=== PATIENT | female | born 1990 | race Caucasian/White ===

== ENCOUNTER 2018-01-11 13:10 | Inpatient (IN) ==
[2018-01-11] MEDS ORDERED: Haloperidol Inj 5 MG/ML Ampul IM ONE ×2 (13:19→13:23)
[2018-01-11] MEDS ORDERED: Acetaminophen 325 MG Tablet PO ONE (15:17)
[2018-01-11 16:10] LABS: Amphetamine Screen,Urine Neg (Neg); Barbiturate Screen,Urine Neg (Neg); Cannabinoid Screen,Urine Pos (Neg); Cocaine Screen,Urine Neg (Neg); Opiate Screen,Urine Neg (Neg)
[2018-01-11 16:17] LABS: Baso % (Auto) 0.2 % (0.0-2.0); Eos % (Auto) 0.1 % (0.0-4.0); Hematocrit 40.9 % (35.0-46.0); Hemoglobin 14.1 gm/dL (11.6-15.3); Lymph # (Auto) 1.4 th/mm3 (1.0-4.8); Lymph % (Auto) 11.1 % (9.0-44.0); Mean Corpuscular HGB Conc 34.6 % (32.0-36.0); Mean Corpuscular Hemoglobin 31.3 pg (27.0-34.0); Mean Corpuscular Volume 90.6 fL (80.0-100.0); Mean Platelet Volume 9.4 fL (7.0-11.0); Mono # (Auto) 0.7 th/mm3 (0.0-0.9); Mono % (Auto) 5.5 % (0.0-8.0); Neut # (Auto) 10.7 th/mm3 (1.8-7.7); Neut % (Auto) 83.1 % (16.0-70.0); Platelet Count 215 th/mm3 (150-450); Red Blood Count 4.51 mil/mm3 (4.00-5.30); White Blood Count 12.8 th/mm3 (4.0-11.0)
[2018-01-11 16:50] LABS: Alanine Aminotransferase 31 U/L (10-53); Albumin 4.1 g/dL (3.4-5.0); Anion Gap 7 meq/L (5-15); Aspartate Aminotransferase 29 U/L (15-37); Blood Urea Nitrogen 14 mg/dL (7-18); Calcium 8.9 mg/dL (8.5-10.1); Carbon Dioxide 28.7 meq/L (21.0-32.0); Chloride 104 meq/L (98-107); Glomerular Filtration Rate 75 mL/min (>89); Glucose,Random 87 mg/dL (74-106); Potassium 4.2 meq/L (3.5-5.1); Sodium 140 meq/L (136-145)
--- NOTE | 2018-01-11 16:57 | ED ---
HPI General Chief Complaint: Psychiatric Symptoms Stated Complaint: Psych Eval/HHPD Time Seen by Provider: 01/11/18 14:40 Source: patient Mode of arrival: ambulatory Limitations: no limitations History of Present Illness HPI Narrative: 27-year-old female presents to the emergency department under Bartholomew act. According to the Bartholomew act report the patient had called her public welfare director and told her that she was going to cut her wrists over a criminal case she is involved in. The public welfare director called the police to report the incident and officers responded to the patient's place of residence and she was not there. There were many attempted phone calls with the patient continually hanging up on the officers. After an extensive ground and air search for the patient she was located. Once the patient was secured in the patrol vehicle she continues to bang her head into the patrol vehicle cage causing injury to her head. The patient does have a small laceration to her mid forehead. She is awake and alert and cooperative on exam. She was combative and agitated upon arrival earlier and was medicated with Haldol, Ativan, and Benadryl. On my examination the patient denies suicidal or homicidal ideations. Denies history of suicidal attempts. Denies plan of suicide. Denies auditory or visual hallucinations. Denies illicit drug use, alcohol use, tobacco use. Denies history of psychiatric illness. Has no emergent medical complaints. Reports having a headache. Aggravated by criminal case. No known relieving factors. Symptoms are moderate to severe in severity. No treatments tried. Onset unknown. Duration most likely acute. History of herniated disks, otherwise denies any significant past medical history. No allergies. No primary care provider. No psychiatrist. Has no other medical complaints. No other modifying factors or associated signs and symptoms. Related Data Home Medications Medication Instructions Recorded Confirmed No Known Home Medications 01/11/18 01/11/18 Allergies Allergy/AdvReac Type Severity Reaction Status Date / Time No Known Allergies Allergy Verified 01/11/18 18:12 Review of Systems ROS: all other systems reviewed are negative PMFSH History History Provided By: Patient Medical History Medical History Patient denies medical problems (Acute) Social History Social History Substance History: No History of Abuse Second Hand Smoke Exposure: No Smoking Status: Never smoker How Often Do You Have a Drink Containing Alcohol: Never Exam Narrative Exam Narrative: GENERAL: Well-nourished, well-developed female patient , in no acute distress SKIN: Warm and dry. Approximately 1 cm, superficial laceration to mid forehead. HEAD: Atraumatic. Normocephalic. EYES: Pupils equal and round. ENT: Mucosa pink and moist. NECK: Supple. Trachea midline. CARDIOVASCULAR: Regular rate and rhythm. No murmur appreciated. RESPIRATORY: No accessory muscle use. Clear to auscultation. Breath sounds equal bilaterally. GASTROINTESTINAL: Abdomen soft, non-tender, nondistended. Hepatic and splenic margins not palpable. Bowel sounds are active 4 quadrants. MUSCULOSKELETAL: No obvious deformities. No clubbing. No cyanosis. No edema. BACK: No CVA tenderness. NEUROLOGICAL: Awake and alert. Oriented 3. No obvious cranial nerve deficits. Motor grossly within normal limits. Normal speech. Moves all extremities. 5/5 strength to all extremities. PSYCHIATRIC: No delusional thought processes. No hallucinations. Procedures Laceration Laceration 1: Site: face (mid forehead) Size (cm): 1 Description: linear Pre-repair:: irrigated extensively (clenaed w/ns) Skin layer closed with: dermabond Course Reevaluation(s) Reevaluation #1: I have spoken with Dr. Garza the neurosurgeon grey iron molder. He does not feel that this is a significant injury. He agrees with admitting the patient for observation. I have also spoken with Dr. Townsend who is accepted the admission for observation. Time: 19:26 Initial Documented Vital Signs Temperature 98.0 F 01/11/18 18:25 Pulse Rate 87 01/11/18 18:25 Respiratory Rate 18 01/11/18 18:25 Blood Pressure 102/59 L 01/11/18 18:25 Pulse Oximetry 100 01/11/18 18:25 Last Documented Vital Signs Temperature 98.0 F 01/11/18 18:25 Pulse Rate 87 01/11/18 18:25 Respiratory Rate 18 01/11/18 18:25 Blood Pressure 102/59 L 01/11/18 18:25 Pulse Oximetry 100 01/11/18 18:25 Medical Decision Making MDM Narrative Medical decision making narrative: Patient presents under a Bartholomew act. Physical examination and vital signs are essentially unremarkable. Patient complaining of headache. She has laceration to her mid forehead. See my procedure note for laceration repair. CT head and Tylenol ordered in addition to protocol for medical clearance. Psych screen has been ordered. If the laboratory results are unremarkable, the patient will be medically cleared for psychiatric evaluation and disposition. The patient is medically stable. She will be admitted for observation due to the potential cortical contusion/hemorrhage. Patient will be admitted to [facility] service and a consult to psychiatry. Medical Screen Exam Complete: Yes Emergency Medical Condition: Yes Lab Data Result diagrams: 01/11/18 15:54 01/11/18 15:54 POC Results POC Urine Results Negative Lab Results 01/11/18 01/11/18 01/11/18 Range/Units 15:51 15:54 15:54 WBC 12.8 H (4.0-11.0) th/mm3 RBC 4.51 (4.00-5.30) mil/mm3 Hgb 14.1 (11.6-15.3) gm/dL Hct 40.9 (35.0-46.0) % MCV 90.6 (80.0-100.0) fL MCH 31.3 (27.0-34.0) pg MCHC 34.6 (32.0-36.0) % RDW 13.0 (11.6-17.2) % Plt Count 215 (150-450) th/mm3 MPV 9.4 (7.0-11.0) fL Neut % (Auto) 83.1 H (16.0-70.0) % Lymph % (Auto) 11.1 (9.0-44.0) % [place] % (Auto) 5.5 (0.0-8.0) % Eos % (Auto) 0.1 (0.0-4.0) % Baso % (Auto) 0.2 (0.0-2.0) % Neut # (Auto) 10.7 H (1.8-7.7) th/mm3 Lymph # (Auto) 1.4 (1.0-4.8) th/mm3 [place] # (Auto) 0.7 (0.0-0.9) th/mm3 Eos # (Auto) 0.0 (0.0-0.4) th/mm3 Baso # (Auto) 0.0 (0.0-0.2) th/mm3 WBC Differential . Differential Comment Auto diff final PT (9.8-11.6) sec INR Ratio APTT (23.4-31.7) sec Sodium 140 (136-145) meq/L Potassium 4.2 (3.5-5.1) meq/L Chloride 104 (98-107) meq/L Carbon Dioxide 28.7 (21.0-32.0) meq/L Anion Gap 7 (5-15) meq/L BUN 14 (7-18) mg/dL Creatinine 0.91 (0.50-1.00) mg/dL Estimated GFR 75 L (>89) mL/min Random Glucose 87 (74-106) mg/dL Calcium 8.9 (8.5-10.1) mg/dL Magnesium 2.0 (1.5-2.5) mg/dL Total Bilirubin 0.7 (0.2-1.0) mg/dL AST 29 (15-37) U/L ALT 31 (10-53) U/L Alkaline Phosphatase 79 (45-117) U/L Total Protein 7.8 (6.4-8.2) g/dL Albumin 4.1 (3.4-5.0) g/dL TSH 2.840 (0.358-3.740) uIU/mL Salicylates (2.8-20.0) mg/dL Urine Opiates Screen Neg (Neg) Acetaminophen 5.0 L (10.0-30.0) mcg/mL Ur Barbiturates Screen Neg (Neg) Ur Amphetamines Screen Neg (Neg) U Benzodiazepines Scrn Neg (Neg) Urine Cocaine Screen Neg (Neg) U Cannabinoids Screen Pos H (Neg) Serum Alcohol Less than 3 (0-5) mg/dL 01/11/18 01/11/18 Range/Units 15:54 20:20 WBC (4.0-11.0) th/mm3 RBC (4.00-5.30) mil/mm3 Hgb (11.6-15.3) gm/dL Hct (35.0-46.0) % MCV (80.0-100.0) fL MCH (27.0-34.0) pg MCHC (32.0-36.0) % RDW (11.6-17.2) % Plt Count (150-450) th/mm3 MPV (7.0-11.0) fL Neut % (Auto) (16.0-70.0) % Lymph % (Auto) (9.0-44.0) % [place] % (Auto) (0.0-8.0) % Eos % (Auto) (0.0-4.0) % Baso % (Auto) (0.0-2.0) % Neut # (Auto) (1.8-7.7) th/mm3 Lymph # (Auto) (1.0-4.8) th/mm3 [place] # (Auto) (0.0-0.9) th/mm3 Eos # (Auto) (0.0-0.4) th/mm3 Baso # (Auto) (0.0-0.2) th/mm3 WBC Differential Differential Comment PT 11.5 (9.8-11.6) sec INR 1.1 Ratio APTT 26.4 (23.4-31.7) sec Sodium (136-145) meq/L Potassium (3.5-5.1) meq/L Chloride (98-107) meq/L Carbon Dioxide (21.0-32.0) meq/L Anion Gap (5-15) meq/L BUN (7-18) mg/dL Creatinine (0.50-1.00) mg/dL Estimated GFR (>89) mL/min Random Glucose (74-106) mg/dL Calcium (8.5-10.1) mg/dL Magnesium (1.5-2.5) mg/dL Total Bilirubin (0.2-1.0) mg/dL AST (15-37) U/L ALT (10-53) U/L Alkaline Phosphatase (45-117) U/L Total Protein (6.4-8.2) g/dL Albumin (3.4-5.0) g/dL TSH (0.358-3.740) uIU/mL Salicylates Less than 1.7 L (2.8-20.0) mg/dL Urine Opiates Screen (Neg) Acetaminophen (10.0-30.0) mcg/mL Ur Barbiturates Screen (Neg) Ur Amphetamines Screen (Neg) U Benzodiazepines Scrn (Neg) Urine Cocaine Screen (Neg) U Cannabinoids Screen (Neg) Serum Alcohol (0-5) mg/dL Imaging Data Radiologist's impression: Head CT 01/11/18 15:17 CONCLUSION: 1. Probable punctate hemorrhage in the anterior right frontoparietal white matter without surrounding edema. 2. No skull fracture seen. . Discharge Plan Discharge Disposition Patient Disposition: 30 Still Patient Discharge Condition Condition: Stable Discharge Details Diagnosis: Forehead laceration Physicians Team ED Provider: Zuleima Bartholomew ED Midlevel Provider: Berta Wood Primary Care Provider: Primary Care GalileaiGina Rxs /Orders / Referrals /Forms Prescriptions: No Action No Known Home Medications RF: 0 Status ED Status: Admitted Observation Patient
[2018-01-11 16:59] LABS: Alkaline Phosphatase 79 U/L (45-117); Total Protein 7.8 g/dL (6.4-8.2)
--- NOTE | 2018-01-11 18:42 | CT ---
EXAM DATE: 01/11/2018 6:38 PM EST AGE/SEX: 27 years / Female INDICATIONS: Head injury. Patient was hitting her head against cage in back of a police car. CLINICAL DATA: This is the patient's initial encounter. Patient reports that signs and symptoms have been present for 1 day and indicates a pain score of 0/10. MEDICAL/SURGICAL HISTORY: None. None. RADIATION DOSE: 36.53 CTDI (mGy) COMPARISON: No prior exams available for comparison. TECHNIQUE: CT of the head without contrast. Using automated exposure control and adjustment of the mA and/or kV according to patient size, radiation dose was kept as low as reasonably achievable to ob tain optimal diagnostic quality images. DICOM format image data is available electronically for revi ew and comparison. FINDINGS: Cerebrum: There is a focal 2 mm hyperdensity in the anterior right high convexity white matter sugge sting a focal hemorrhage. There is good montaño-white matter differentiation. The ventricles are normal in size. Axial fluid collections. Posterior Fossa: The cerebellum and brainstem are intact. The 4th ventricle is midline. The cerebe llopontine angle is unremarkable. Extracranial: The visualized portion of the orbits is intact. Skull: The calvaria is intact. No evidence of skull fracture. CONCLUSION: 1. Probable punctate hemorrhage in the anterior right frontoparietal white matter without surroundin g edema. 2. No skull fracture seen. . Electronically signed by: Santos Eugene MD 01/11/2018 6:40 PM EST
[2018-01-11 20:56] LABS: Activated Partial Thrombo Time 26.4 sec (23.4-31.7); INR 1.1 Ratio; Prothrombin Time 11.5 sec (9.8-11.6)
[2018-01-11] MEDS ORDERED: Acetaminophen 325 MG Tablet PO PRN (21:41)
--- NOTE | 2018-01-11 22:58 | P.HP ---
History of Present Illness Service: [facility] Primary Care Physician: No Primary Care Physician History of Present Illness: 27-year-old female with no significant past medical history presents the emergency department under Bartholomew act. According to the patient, she told her correction officer head that she was going to kill herself because she was frustrated with the way her current criminal case was being handled. During her interview , the patient denies having any intention of ever harming her or at that time or now. Per ED documentation, the patient was located by police and was secured in a patrol vehicle. At that time she began to bang her head into the patrol vehicle cage causing a laceration to her forehead. She is awake and alert and cooperative during her interview. She states her head feels heavy but denies any significant pain. No headache. No neurologic deficits. No fever/chills. No chest pain or shortness of breath. No abdominal pain. No nausea/vomiting/diarrhea. Review of Systems All other systems reviewed negative except as stated in HPI [facility] - History History Provided By: Patient - Medical History Medical History: Medical History (Last Reviewed 01/11/18 @ 22:53 by Magali Townsend MD) Patient denies medical problems - Surgical History Surgical History: Surgical History (Last Reviewed 01/11/18 @ 22:53 by Magali Townsend MD) History of nasal surgery - Family History Family History: Family History (Last Updated 01/11/18 @ 22:53 by Magali Townsend MD) Other Family history normal - Tobacco History Second Hand Smoke Exposure: No Smoking Status: Never smoker - Alcohol History How Often Do You Have a Drink Containing Alcohol: Never - Substance Use History Substance History: No History of Abuse - Immunization History Tetanus Immunization: Unsure Medications and Allergies Active Medications: Active Medications Acetaminophen (Tylenol) 650 mg PO Q4H PRN PRN Reason: Temp > 100.4 Ondansetron HCl (Zofran Inj) 4 mg IV.PUSH Q6H PRN PRN Reason: NAUSEA OR VOMITING Allergies Allergy/AdvReac Type Severity Reaction Status Date / Time No Known Allergies Allergy Verified 01/11/18 18:12 Home Medications Medication Instructions Recorded Confirmed Type No Known Home Medications 01/11/18 01/11/18 History Exam Vital signs: Vital Signs 01/11/18 18:25 Temperature 98.0 F Pulse Rate 87 Respiratory Rate 18 Blood Pressure 102/59 L Pulse Oximetry 100 Narrative: Gen.: No acute distress Head: Normocephalic. Atraumatic. EENT: Pupils equal round and reactive to light. Nose without drainage. Airway intact. Throat without injection. Cardiovascular: Regular rate and rhythm. No murmurs, rubs or gallops. Respiratory: Lungs clear to auscultation bilaterally. No wheezes or rhonchi. Abdomen: Soft, nontender, nondistended. No peritoneal signs. Musculoskeletal: No gross deformities. No edema. Skin: Small laceration to the central forehead. Neuro: Sensory intact. Cranial nerves II through XII grossly intact. Strength 5/5 throughout. Normal speech. Alert and oriented x4. Results - Labs CBC & Chem 7: 01/11/18 15:54 01/11/18 15:54 Labs: Laboratory Results - last 24 hr 01/11/18 01/11/18 01/11/18 15:51 15:54 15:54 WBC 12.8 H RBC 4.51 Hgb 14.1 Hct 40.9 MCV 90.6 MCH 31.3 MCHC 34.6 RDW 13.0 Plt Count 215 MPV 9.4 Neut % (Auto) 83.1 H Lymph % (Auto) 11.1 [place] % (Auto) 5.5 Eos % (Auto) 0.1 Baso % (Auto) 0.2 Neut # (Auto) 10.7 H Lymph # (Auto) 1.4 [place] # (Auto) 0.7 Eos # (Auto) 0.0 Baso # (Auto) 0.0 WBC Differential . Differential Comment Auto diff final PT INR APTT Sodium 140 Potassium 4.2 Chloride 104 Carbon Dioxide 28.7 Anion Gap 7 BUN 14 Creatinine 0.91 Estimated GFR 75 L Random Glucose 87 Calcium 8.9 Magnesium 2.0 Total Bilirubin 0.7 AST 29 ALT 31 Alkaline Phosphatase 79 Total Protein 7.8 Albumin 4.1 TSH 2.840 Salicylates Urine Opiates Screen Neg Acetaminophen 5.0 L Ur Barbiturates Screen Neg Ur Amphetamines Screen Neg U Benzodiazepines Scrn Neg Urine Cocaine Screen Neg U Cannabinoids Screen Pos H Serum Alcohol Less than 3 01/11/18 01/11/18 15:54 20:20 WBC RBC Hgb Hct MCV MCH MCHC RDW Plt Count MPV Neut % (Auto) Lymph % (Auto) [place] % (Auto) Eos % (Auto) Baso % (Auto) Neut # (Auto) Lymph # (Auto) [place] # (Auto) Eos # (Auto) Baso # (Auto) WBC Differential Differential Comment PT 11.5 INR 1.1 APTT 26.4 Sodium Potassium Chloride Carbon Dioxide Anion Gap BUN Creatinine Estimated GFR Random Glucose Calcium Magnesium Total Bilirubin AST ALT Alkaline Phosphatase Total Protein Albumin TSH Salicylates Less than 1.7 L Urine Opiates Screen Acetaminophen Ur Barbiturates Screen Ur Amphetamines Screen U Benzodiazepines Scrn Urine Cocaine Screen U Cannabinoids Screen Serum Alcohol - Imaging Impressions Head CT 01/11/18 15:17 CONCLUSION: 1. Probable punctate hemorrhage in the anterior right frontoparietal white matter without surrounding edema. 2. No skull fracture seen. . Caprini VTE Risk Assessment Caprini VTE Risk Assessment: No/Low Risk (score <= 1) Caprini Risk Assessment Model: Point Value = 1 Point Value = 2 Point Value = 3 Point Value = 5 Age 41-60 Minor surgery BMI > 25 kg/m2 Swollen legs Varicose veins or History of unexplained or recurrent spontaneous Oral contraceptives or hormone replacement Sepsis (< 1 month) Serious lung disease, including pneumonia (< 1 month) Abnormal pulmonary function Acute myocardial infarction Congestive heart failure (< 1 month) History of inflammatory bowel disease Medical patient at bed rest Age 61-74 Arthroscopic surgery Major open surgery (> 45 min) Laparoscopic surgery (> 45 min) Malignancy Confined to bed (> 72 hours) Immobilizing plaster cast Central venous access Age >= 75 History of VTE Family history of VTE Factor V Leiden Prothrombin [id number] Lupus anticoagulant Anticardiolipin antibodies Elevated serum homocysteine Heparin-induced thrombocytopenia Other congenital or acquired thrombophilia Stroke (< 1 month) Elective arthroplasty Hip, pelvis, or leg fracture Acute spinal cord injury (< 1 month) Prophylaxis Regimen: Total Risk Factor Score Risk Level Prophylaxis Regimen 0-1 Low Early ambulation 2 Moderate Order ONE of the following: *Sequential Compression Device (SCD) *Heparin 5000 units SQ BID 3-4 Higher Order ONE of the following medications: *Heparin 5000 units SQ TID *Enoxaparin/Lovenox 40 mg SQ daily (WT < 150 kg, CrCl > 30 mL/min) *Enoxaparin/Lovenox 30 mg SQ daily (WT < 150 kg, CrCl > 10-29 mL/min) *Enoxaparin/Lovenox 30 mg SQ BID (WT < 150 kg, CrCl > 30 mL/min) AND/OR *Sequential Compression Device (SCD) 5 or more Highest Order ONE of the following medications: *Heparin 5000 units SQ TID (Preferred with Epidurals) *Enoxaparin/Lovenox 40 mg SQ daily (WT < 150 kg, CrCl > 30 mL/min) *Enoxaparin/Lovenox 30 mg SQ daily (WT < 150 kg, CrCl > 10-29 mL/min) *Enoxaparin/Lovenox 30 mg SQ BID (WT < 150 kg, CrCl > 30 mL/min) AND *Sequential Compression Device (SCD) Assessment and Plan - Plan Assessment/plan: 1. Punctate hemorrhage Head CT significant for probable punctate hemorrhage in the anterior right frontoparietal white matter without surrounding edema Neurosurgery consulted, appreciate recommendations Neuro checks every 4 hours 2. Threatened suicide Patient denies any past or present suicidal ideation Bartholomew act in place, psychiatry consulted FEN N.p.o. Electrolytes: Monitor and replete as needed NS at 100 cc/hr
[2018-01-11] MEDS ORDERED: Sod Chloride 0.9% Inj 1,000 ML IV.CONT SCH (23:00)
[2018-01-12 07:45] LABS: Baso % (Auto) 0.5 % (0.0-2.0); Eos % (Auto) 0.5 % (0.0-4.0); Hematocrit 37.9 % (35.0-46.0); Lymph # (Auto) 1.9 th/mm3 (1.0-4.8); Lymph % (Auto) 28.8 % (9.0-44.0); Mean Corpuscular HGB Conc 34.4 % (32.0-36.0); Mean Corpuscular Hemoglobin 31.3 pg (27.0-34.0); Mean Corpuscular Volume 91.1 fL (80.0-100.0); Mean Platelet Volume 9.7 fL (7.0-11.0); Mono # (Auto) 0.5 th/mm3 (0.0-0.9); Mono % (Auto) 6.9 % (0.0-8.0); Neut # (Auto) 4.1 th/mm3 (1.8-7.7); Neut % (Auto) 63.3 % (16.0-70.0); Platelet Count 196 th/mm3 (150-450); Red Blood Count 4.16 mil/mm3 (4.00-5.30); Red Cell Distribution Width 13.3 % (11.6-17.2); White Blood Count 6.5 th/mm3 (4.0-11.0)
[2018-01-12 08:07] LABS: Anion Gap 8 meq/L (5-15); Blood Urea Nitrogen 13 mg/dL (7-18); Calcium 8.7 mg/dL (8.5-10.1); Carbon Dioxide 26.4 meq/L (21.0-32.0); Chloride 108 meq/L (98-107); Glomerular Filtration Rate Greater Than 89 mL/min (>89); Glucose,Random 87 mg/dL (74-106); Sodium 142 meq/L (136-145)
[2018-01-12 08:24] VITALS: RESP 20
--- NOTE | 2018-01-12 09:40 | P.PN ---
Subjective Interval history: Follow up for head contusion: Patient seen and examined, awakes to voice, oriented x3. No focal deficits. Denies headache, chest pain, shortness of breath, no nausea, no vomiting, no diarrhea. No fever. No acute changes overnight. Sitter has been discontinued, patient has been seen by psychiatry and Bartholomew act has been lifted. Patient denies suicidal ideation. She is asking if she is going to be discharged. She is anxious to go home as she has a new job that she is starting today.Pleasant and cooperative Physical Exam Vital signs: Vital Signs 01/11/18 18:25 01/11/18 23:00 01/12/18 00:00 Temperature 98.0 F 98.9 F Pulse Rate 87 76 74 Respiratory Rate 18 18 18 Blood Pressure 102/59 L 120/78 120/78 Pulse Oximetry 100 98 01/12/18 03:47 01/12/18 08:22 Temperature 98.7 F 98.0 F Pulse Rate 75 68 Respiratory Rate 16 20 Blood Pressure 113/75 99/57 L Pulse Oximetry 99 97 Intake & Output 01/11/18 01/12/18 01/12/18 18:59 06:59 18:59 Intake Total 900 / 900 Balance 900 / 900 Intake: IV 900 / 900 NS Inj 1,000 ML @ 100 mls/hr IV 900 / 900 .CONT .Q10H KUMAR Rx#:[id number] Oral 0 / 0 Other: # Voids 2 Narrative: Gen.: No acute distress Head: Normocephalic. Atraumatic. EENT: Pupils equal round and reactive to light. Nose without drainage. Airway intact. Throat without injection. Cardiovascular: Regular rate and rhythm. No murmurs, rubs or gallops. Respiratory: Lungs clear to auscultation bilaterally. No wheezes or rhonchi. Abdomen: Soft, nontender, nondistended. No peritoneal signs. Musculoskeletal: No gross deformities. No edema. Skin: Small laceration to the central forehead with swelling and bruising. Neuro: Awake, oriented x 3. No focal deficits. Results - Labs CBC & Chem 7: 01/12/18 06:59 01/12/18 06:59 Laboratory Results - last 24 hr 01/11/18 01/11/18 01/11/18 15:51 15:54 15:54 WBC 12.8 H RBC 4.51 Hgb 14.1 Hct 40.9 MCV 90.6 MCH 31.3 MCHC 34.6 RDW 13.0 Plt Count 215 MPV 9.4 Neut % (Auto) 83.1 H Lymph % (Auto) 11.1 [place] % (Auto) 5.5 Eos % (Auto) 0.1 Baso % (Auto) 0.2 Neut # (Auto) 10.7 H Lymph # (Auto) 1.4 [place] # (Auto) 0.7 Eos # (Auto) 0.0 Baso # (Auto) 0.0 WBC Differential . Differential Comment Auto diff final PT INR APTT Sodium 140 Potassium 4.2 Chloride 104 Carbon Dioxide 28.7 Anion Gap 7 BUN 14 Creatinine 0.91 Estimated GFR 75 L Random Glucose 87 Calcium 8.9 Magnesium 2.0 Total Bilirubin 0.7 AST 29 ALT 31 Alkaline Phosphatase 79 Total Protein 7.8 Albumin 4.1 TSH 2.840 Salicylates Urine Opiates Screen Neg Acetaminophen 5.0 L Ur Barbiturates Screen Neg Ur Amphetamines Screen Neg U Benzodiazepines Scrn Neg Urine Cocaine Screen Neg U Cannabinoids Screen Pos H Serum Alcohol Less than 3 01/11/18 01/11/18 01/12/18 15:54 20:20 06:59 WBC 6.5 RBC 4.16 Hgb 13.0 Hct 37.9 MCV 91.1 MCH 31.3 MCHC 34.4 RDW 13.3 Plt Count 196 MPV 9.7 Neut % (Auto) 63.3 Lymph % (Auto) 28.8 [place] % (Auto) 6.9 Eos % (Auto) 0.5 Baso % (Auto) 0.5 Neut # (Auto) 4.1 Lymph # (Auto) 1.9 [place] # (Auto) 0.5 Eos # (Auto) 0.0 Baso # (Auto) 0.0 WBC Differential . Differential Comment Auto diff final PT 11.5 INR 1.1 APTT 26.4 Sodium Potassium Chloride Carbon Dioxide Anion Gap BUN Creatinine Estimated GFR Random Glucose Calcium Magnesium Total Bilirubin AST ALT Alkaline Phosphatase Total Protein Albumin TSH Salicylates Less than 1.7 L Urine Opiates Screen Acetaminophen Ur Barbiturates Screen Ur Amphetamines Screen U Benzodiazepines Scrn Urine Cocaine Screen U Cannabinoids Screen Serum Alcohol 01/12/18 06:59 WBC RBC Hgb Hct MCV MCH MCHC RDW Plt Count MPV Neut % (Auto) Lymph % (Auto) [place] % (Auto) Eos % (Auto) Baso % (Auto) Neut # (Auto) Lymph # (Auto) [place] # (Auto) Eos # (Auto) Baso # (Auto) WBC Differential Differential Comment PT INR APTT Sodium 142 Potassium 4.0 Chloride 108 H Carbon Dioxide 26.4 Anion Gap 8 BUN 13 Creatinine 0.78 Estimated GFR Greater than 89 Random Glucose 87 Calcium 8.7 Magnesium Total Bilirubin AST ALT Alkaline Phosphatase Total Protein Albumin TSH Salicylates Urine Opiates Screen Acetaminophen Ur Barbiturates Screen Ur Amphetamines Screen U Benzodiazepines Scrn Urine Cocaine Screen U Cannabinoids Screen Serum Alcohol - Imaging Impressions Head CT 01/11/18 15:17 CONCLUSION: 1. Probable punctate hemorrhage in the anterior right frontoparietal white matter without surrounding edema. 2. No skull fracture seen. . Assessment and Plan - Assessment (1) Forehead laceration Code(s): S01.81XA - Laceration without foreign body of other part of head, initial encounter Status: Acute (2) Adjustment disorder with mixed disturbance of emotions and conduct Code(s): F43.25 - Adjustment disorder with mixed disturbance of emotions and conduct Status: Acute - Plan 27-year-old female with no significant past medical history presents the emergency department under Bartholomew act. According to the patient, she told her complaint investigations officer that she was going to kill herself because she was frustrated with the way her current criminal case was being handled. During her interview , the patient denies having any intention of ever harming her or at that time or now. Per ED documentation, the patient was located by police and was secured in a patrol vehicle. At that time she began to bang her head into the patrol vehicle cage causing a laceration to her forehead. Punctate hemorrhage Head CT significant for probable punctate hemorrhage in the anterior right frontoparietal white matter without surrounding edema -Neurosurgery consulted,pending -continue with Neuro checks every 4 hours -Telemetry monitoring Threatened suicide Patient denies any past or present suicidal ideation Reported to psych hx of bipolar, self cutting in the past. -Appreciate psych input, Bartholomew Act lifted. Resume diet Ok to DC IVF Will wait for neurosurgery input Discharge when cleared by neurosurgery Code Status: full code Discussed Condition With: RN, pt, CM Discharge Planning: DC when ok by neurosurgery. Evaluated by paulino Dugan for dc Discharge patient to home Condition on discharge: Improved Regular Diet as tolerated Ad Amanda, no driving. Monitor for post concussion symptoms. Follow-up with primary care physician (1) Forehead laceration Qualifiers: Encounter type: initial encounter Qualified Code(s): S01.81XA - Laceration without foreign body of other part of head, initial encounter
--- NOTE | 2018-01-12 11:42 | P.CONPSY ---
Provisional Diagnosis Admission Date: January 12, 2018 10:45 [place].: Adjustment disorder with disturbance with mixed of conduct and emotions, cannabis use disorder, self-reported bipolar disorder [place] II.: Unspecified personality disorder, strong cluster B traits History of Present Illness Service: ER Primary Care Provider: No Primary Care Physician History of Present Illness: The patient is a [id number] woman, who recently moved to [place] from the [place], she losing [facility] with her cousin, single, unemployed, with a significant psychiatric history of self-reported bipolar disorder, cannabis use disorder, 1 previous psychiatric hospitalization in [place], extensive history of self cutting behavior, poor impulse control, aggressive behavior, she is no medications, with no significant past medical history, who presents the emergency department under Bartholomew act. According to the patient, she told her transportation officer that she was going to kill herself because she was frustrated with the way her current criminal case was being handled. On psychiatric evaluation today the patient is calm, cooperative, talking distendedly with sitter. Patient reports feeling much better, to be in a good mood. the patient denies having any intention of ever harming her or at that time or now. documentation, the patient was located by police and was secured in a patrol vehicle. At that time she began to bang her head into the patrol vehicle cage causing a laceration to her forehead. She is no In observation due to Punctate hemorrhage: Head CT significant for probable punctate hemorrhage in the anterior right frontoparietal white matter without surrounding edema. Neurosurgery consulted, appreciate recommendations: Neuro checks every 4 hours. The patient reports that she was really upset because she has been charge with robbery and she completely does agree with the charge verdict stating that she was not even the person who stole in [facility], was my friend. The patient seems to be logical, coherent and relevant. She says that she has a very poor impulse control, but in the past she used to cut herself and harm herself to get attention and also to substitute emotional with physical pain. PPHx: psychiatric history of self-reported bipolar disorder, cannabis use disorder, 1 previous psychiatric hospitalization in [place], extensive history of self cutting behavior, poor impulse control, aggressive behavior, she is no medications PMHx:with no significant past medical history Substance Hx: She reports occasional use of marijuana Family Hx: No family psychiatric history Social Hx: The patient was born and raised in the [place], she has been living in [place] for 2 months now with her cousin, single, unemployed, highest level of education is high school Review of Systems All other systems reviewed negative except as stated in HPI PMFSH - History History Provided By: Patient - Medical History Medical History: Medical History (Last Reviewed 01/11/18 @ 22:53 by Magali Townsend MD) Patient denies medical problems - Surgical History Surgical History: Surgical History (Last Reviewed 01/11/18 @ 22:53 by Magali Townsend MD) History of nasal surgery - Family History Family History: Family History (Last Updated 01/11/18 @ 22:53 by Magali Townsend MD) Other Family history normal - Tobacco History Second Hand Smoke Exposure: No Smoking Status: Never smoker - Alcohol History How Often Do You Have a Drink Containing Alcohol: Never - Substance Use History Substance History: No History of Abuse - Travel History Recent Travel in the [facility] Within the Last 8 Weeks: No Recent Travel Out of the Country Within the Last 8 Weeks: No - Immunization History Tetanus Immunization: Unsure Medications and Allergies Active Medications: Active Medications Acetaminophen (Tylenol) 650 mg PO Q4H PRN PRN Reason: Temp > 100.4 Ondansetron HCl (Zofran Inj) 4 mg IV.PUSH Q6H PRN PRN Reason: NAUSEA OR VOMITING Allergies Allergy/AdvReac Type Severity Reaction Status Date / Time No Known Allergies Allergy Verified 01/11/18 18:12 Home Medications Medication Instructions Recorded Confirmed Type No Known Home Medications 01/11/18 01/11/18 History Exam Vital signs: Vital Signs 01/11/18 18:25 01/11/18 23:00 01/12/18 00:00 Temperature 98.0 F 98.9 F Pulse Rate 87 76 74 Respiratory Rate 18 18 18 Blood Pressure 102/59 L 120/78 120/78 Pulse Oximetry 100 98 01/12/18 03:47 01/12/18 08:22 Temperature 98.7 F 98.0 F Pulse Rate 75 68 Respiratory Rate 16 20 Blood Pressure 113/75 99/57 L Pulse Oximetry 99 97 Intake & Output 01/11/18 01/12/18 01/12/18 18:59 06:59 18:59 Intake Total 900 / 900 Balance 900 / 900 Intake: IV 900 / 900 NS Inj 1,000 ML @ 100 mls/hr IV 900 / 900 .CONT .Q10H KUMAR Rx#:[id number] Oral 0 / 0 Other: # Voids 2 Narrative: No tremors, no EPS, no psychomotor agitation or retardation - Constitutional no acute distress - Routine HEENT Exam Head: Present: normocephalic, atraumatic Eye: Present: EOMI, PERRL ENT: Present: mucous membranes moist Mental Status Examination Appearance: Appropriate Consciousness: Alert Orientation: x4 Motor Activity: Normal gait Speech: Unremarkable Language: Adequate Fund of Knowledge: Adequate Attention and Concentration: Adequate Memory: Unremarkable Mood: Appropriate Affect: Appropriate Thought Process & Associations: Intact Thought Content: Appropriate Hallucination Type: None Delusion Type: None Suicidal Ideation: No Suicidal Plan: No Suicidal Intention: No Homicidal Ideation: No Homicidal Plan: No Homicidal Intention: No Insight: Adequate Judgment: Adequate Assessment and Plan - Assessment (1) Adjustment disorder with mixed disturbance of emotions and conduct Code(s): F43.25 - Adjustment disorder with mixed disturbance of emotions and conduct Status: Acute - Plan Plan: On my psychiatric evaluation today the patient does not present any symptomatology of acute, concerning or significant objective or subjective depression, anxiety, demarcus or psychosis. The patient denies suicidal and homicidal ideation, she denies visual and auditory hallucinations. During the evaluation the patient is calm, cooperative, logical, coherent and relevant. Recent episode of self harming behavior as well as poor impulse control displayed to the police after court verdict seems to be the result of maladaptive coping skills and character structure. Patient has clinically significant cluster B traits. She has history of self injury behavior in the past to cope with frustration and stress. Patient does not meet criteria for involuntary psychiatric admission. Support, motivational psychoeducation provided. Bartholomew act will be lifted Justification for Continued Inpatient Stay: Bartholomew act will be lifted
[2018-01-12 12:00] VITALS: BP 117/59; PULSE 92; TEMP 98.7; O2SAT 96
--- NOTE | 2018-01-12 15:38 | P.CONNS ---
History of Present Illness Service: Neurosurgery Consult date: 01/12/18 Requesting Physician: Garcia Cristobal Reason for Consult: Cerebral contusion Primary Care Provider: No Primary Care Physician History of Present Illness: 27-year-old female who was brought to [facility] Bartholomew acted for suicidal ideation and was banging head against patrol vehicle cage. No loss of consciousness and no particular complaints at this point other than mild tenderness at the forehead abrasion area. CT scan of the head obtained reveals small 2 mm right frontal contusion and she was admitted for observation overnight. She has been cleared by the psychiatry service for discharge and the Bartholomew act has been lifted. She denies any headaches, nausea or vomiting or any neck or back pain or numbness or paresthesias or any particular complaints. She is requesting to be discharged home and has been up and ambulating independently. Review of Systems All other systems reviewed negative except as stated in [facility] - History History Provided By: Patient - Medical History Medical History: Medical History (Last Reviewed 01/12/18 @ 15:34 by Roberto Garza MD) Patient denies medical problems - Surgical History Surgical History: Surgical History (Last Reviewed 01/12/18 @ 15:34 by Roberto Garza MD) History of nasal surgery - Family History Family History: Family History (Last Reviewed 01/12/18 @ 15:34 by Roberto Garza MD) Other Family history normal - Tobacco History Second Hand Smoke Exposure: No Smoking Status: Never smoker - Alcohol History How Often Do You Have a Drink Containing Alcohol: Never - Substance Use History Substance History: No History of Abuse - Travel History Recent Travel in the [place] Within the Last 8 Weeks: No Recent Travel Out of the Country Within the Last 8 Weeks: No - Immunization History Tetanus Immunization: Unsure Medications and Allergies Active Medications: Active Medications Acetaminophen (Tylenol) 650 mg PO Q4H PRN PRN Reason: Temp > 100.4 Ondansetron HCl (Zofran Inj) 4 mg IV.PUSH Q6H PRN PRN Reason: NAUSEA OR VOMITING Allergies Allergy/AdvReac Type Severity Reaction Status Date / Time No Known Allergies Allergy Verified 01/11/18 18:12 Home Medications Medication Instructions Recorded Confirmed Type No Known Home Medications 01/11/18 01/11/18 History Exam Vital signs: Vital Signs 01/11/18 18:25 01/11/18 23:00 01/12/18 00:00 Temperature 98.0 F 98.9 F Pulse Rate 87 76 74 Respiratory Rate 18 18 18 Blood Pressure 102/59 L 120/78 120/78 Pulse Oximetry 100 98 01/12/18 03:47 01/12/18 08:22 01/12/18 11:58 Temperature 98.7 F 98.0 F 98.7 F Pulse Rate 75 68 92 H Respiratory Rate 16 20 20 Blood Pressure 113/75 99/57 L 117/59 L Pulse Oximetry 99 97 96 Intake & Output 01/11/18 01/12/18 01/12/18 18:59 06:59 18:59 Intake Total 900 / 900 100 / 100 Balance 900 / 900 100 / 100 Intake: IV 900 / 900 100 / 100 NS Inj 1,000 ML @ 100 mls/hr IV 900 / 900 100 / 100 .CONT .Q10H KUMAR Rx#:[id number] Oral 0 / 0 Other: # Voids 2 - Constitutional no acute distress - Routine HEENT Exam Head: Present: abrasion Eye: Present: EOMI, PERRL ENT: Present: mucous membranes moist, oropharynx clear, external ear normal - Routine Neck Exam Present: supple, full ROM, trachea midline - Routine Respiratory Exam Present: CTA bilaterally - Routine Cardiovascular Exam Present: RRR, S1, S2 - Routine Abdominal Exam Present: soft, normoactive bowel sounds - Routine Extremities Exam Present: full ROM - Routine Skin Exam Present: intact - Routine Neurological Exam Present: oriented X3, CN II-XII intact, plantar reflex, moving all extremities, normal speech Results - Laboratory Findings CBC and BMP: 01/12/18 06:59 01/12/18 06:59 Abnormal lab findings: Abnormal Labs 01/11/18 01/11/18 01/11/18 15:51 15:54 15:54 WBC 12.8 H Neut % (Auto) 83.1 H Neut # (Auto) 10.7 H Chloride Estimated GFR 75 L Salicylates Acetaminophen 5.0 L U Cannabinoids Screen Pos H 01/11/18 01/12/18 15:54 06:59 WBC Neut % (Auto) Neut # (Auto) Chloride 108 H Estimated GFR Salicylates Less than 1.7 L Acetaminophen U Cannabinoids Screen - Diagnostic Findings Additional findings: Impression Head CT 01/11/18 15:17 CONCLUSION: 1. Probable punctate hemorrhage in the anterior right frontoparietal white matter without surrounding edema. 2. No skull fracture seen. Assessment and Plan - Assessment (1) Cerebral contusion Code(s): S06.339A - Contusion and laceration of cerebrum, unspecified, with loss of consciousness of unspecified duration, initial encounter Status: Acute - Plan 27-year-old lady with self inflicted wound to the head and small subcortical right frontal contusion. Her exam is stable overnight at this point she is acting like her normal self with no suicidal ideation or any particular neurologic complaint. She is instructed to avoid any activities or behavior risking further injury to the head. She is stable from a neurosurgical standpoint and at this point will be seen on an as-needed basis. (1) Cerebral contusion Qualifiers: Encounter type: initial encounter Laterality: right Loss of consciousness presence/duration: without LOC Qualified Code(s): S06.310A - Contusion and laceration of right cerebrum without loss of consciousness, initial encounter
== END 2018-01-12 15:30 | disposition home or self-care (01) | DRG 86 ==
LOC: NEPJ 13:10 → NEDA 13:10 → NEPGCP 01-12 00:15
PROVIDERS: ADMIT Internal Medicine; ATTEND Internal Medicine
CPT/HCPCS: 12011; 70450; 80048; 80053; 80307; 83735; 84443; 84703; 85025; 85610; 85730; 90772; 90782; 90792; 96372; 99285; G0378; J1200; J1630; J2060; J7030